=== PATIENT | male | born 1950 | race Caucasian/White ===

== ENCOUNTER → 2018-06-02 | Day surgery (SDC) | payer MEDICARE, OTHER ==
[~2018-06-02] MED LIST: FISH OIL 1,2001 EAC4 PO; FLOMAX0.4 MG PO; JANTOVEN5 MG PO; LOPRESSOR50 PO; VITAMIN D1000 UNI1 PO
[2018-06-02 07:11] LABS: HEMATOCRIT 48.1 % (42.0-52.0); HEMOGLOBIN 16.7 gm/dL (14.0-18.0); MCH 32.6 pg (26.0-34.0); MCHC 34.8 g/dL (28.0-37.0); MCV 93.9 fL (80.0-100.0); MPV 8.8 fl. (7.2-11.1); RBC 5.12 mil/uL (4.50-6.00); WBC 7.4 thou/uL (4.0-11.0)
[2018-06-02 07:15] LABS: CALCIUM 8.9 mg/dL (8.5-10.1)
--- NOTE | 2018-06-02 13:50 | EKG ---
[place] [address] ELECTROCARDIOGRAM REPORT Name: MOISES WHITE Room: [facility]#: [id number] Admission: 06/02/18 Attend Phys: Jad Brennan MD Discharge: Date of : 50 Report #: [id number] THIS REPORT FOR: //name// [facility] Test Date: 2018-06-02 Test Time: 07:29:31 Pat Name: MOISES WHITE Department: Room: Gender: Reverse Unit Operator: : 1950 Requested By: Jad Brennan Order Number: [id number] Reading MD: Franklin Oleary Measurements Intervals [place] Rate: 72 P: 0 TX: 57 QRS: 37 QRSD: 102 T: -74 QT: 371 QTc: 406 Interpretive Statements Ventricular-paced complexes atrial fibrillation Abnormal R-wave progression, early transition Abnormal T, consider ischemia, diffuse leads Compared to ECG 02/14/2006 14:06:36 ventricular paced beats noted Electronically Signed On 06-02-2018 13:50:06 [employer]MENT COORDINATOR by Franklin Oleary [email or web address] <ELECTRONICALLY SIGNED> By: Franklin Oleary MD, FAC 06/02/18 1350 0729 0729 Franklin Oleary MD, [facility] /EPI
--- NOTE | 2018-06-05 17:07 | PATH ---
[address] [address] PATHOLOGY RPT PROCEDURE Name: MOISES RUSSO [id number] Admission: 06/02/18 Date of : 50 Discharge: Report #: [id number] Path Case #: [id number] [facility] Accession Number: [id number] . 01 Material submitted: . SIGMOID COLON POLYP . 01 Clinical history: . Screening . 02 Diagnosis: Sigmoid colon polyp: - Tubular adenoma, negative for high grade dysplasia. . (WALLACE:at;06/05/2018) QTA/06/05/2018 . 02 Electronically signed: . Meng Conte MD, Pathologist NPI- [id number] . 01 Gross description: . Received in formalin labeled "Moises Russo, sigmoid colon polyp," is a 1.1 x 0.4 x 0.2 cm polypoid piece of denton soft tissue. The margin is inked and the specimen is sectioned perpendicular to the margin and entirely submitted in cassette A1. (TSD; 06/02/2018) TOB/TOB . 02 Pathologist provided ICD-10: D12.5 . 02 CPT . 351609 Specimen Comment: A courtesy copy of this report has been sent to Specimen Comment: [phone], . Specimen Comment: Report sent to / DR DAUGHERTY Performed at: [address], [place] [id number] MD Javier Dasilva MD Phone: [phone] Performed at: 02 [facility] [address], [place], [place] [id number] MD Meng Conte MD Phone: [phone]
== END | disposition home or self-care (01) ==
LOC: M.SUR 06:32
PROVIDERS: Internal Medicine Gastroenterology
DX: Z12.11 Encounter for screening for malignant neoplasm of colon (principal); D12.5 Benign neoplasm of sigmoid colon; K64.4 Residual hemorrhoidal skin tags; I10 Essential (primary) hypertension; I48.91 Unspecified atrial fibrillation; C67.9 Malignant neoplasm of bladder, unspecified; E78.5 Hyperlipidemia, unspecified; I73.9 Peripheral vascular disease, unspecified; G43.909 Migraine, unspecified, not intractable, without status migrainosus; Z79.899 Other long term (current) drug therapy; Z95.0 Presence of cardiac pacemaker; Z98.890 Other specified postprocedural states; Z79.01 Long term (current) use of anticoagulants; Z88.8 Allergy status to other drugs, medicaments and biological substances

== ENCOUNTER → 2020-12-17 | Outpatient (CLI) | payer MEDICARE, OTHER ==
[2020-12-17 13:10] LABS: SGOT 14 U/L (15-37); SGPT 30 U/L (30-65)
[2020-12-17 21:06] LABS: T3 UPTAKE 28 % (24-39)
== END ==
LOC: M.RAD 12:37
PROVIDERS: ATTEND Internal Medicine Interventional Cardiology
DX: I47.1 Supraventricular tachycardia (principal)

== ENCOUNTER → 2021-01-29 | Outpatient (CLI) | payer MEDICARE, BC | LOC: M.LAB 12:27 | DX: I47.2 Ventricular tachycardia (principal) ==

== ENCOUNTER → 2021-05-04 | Outpatient (CLI) | payer MEDICARE, BC | LOC: M.LAB 12:34 | DX: I48.21 Permanent atrial fibrillation (principal) ==